=== PATIENT | female | born 1970 | race Two or more races ===

== ENCOUNTER 2025-05-03 12:15 | Day surgery (SDC) | payer MEDICAID, SELFPAY ==
[2025-05-02 14:21] VITALS: BMI 34.0
[2025-05-03] VITALS (13 sets, daily range): BP systolic 120–149; BP diastolic 63–102; PULSE 62–79; RESP 12–16; TEMP 36.5–36.7; O2SAT 94–100; BMI 32.5
[2025-05-03] MEDS: SODIUM CHLORIDE 0.9% 500 ML 500 ML 20 ML IV (14:22)
[2025-05-03] MEDS: fentaNYL CIT INJ 50 mCg/ML AMP 2ML (ASD USE ONLY) IVP (14:26)
[2025-05-03] MEDS: MIDAZOLAM INJ 1 MG/ML VIAL 2 ML (ASD USE ONLY) 2 MG IVP (14:31)
== END 2025-05-03 15:50 | disposition home or self-care (01) ==
PROVIDERS: Referring Provider Surgery; Visit Provider Surgery
PROC: 0DBE8ZX Excision of Large Intestine, Via Natural or Artificial Opening Endoscopic, Diagnostic (ICD-10-PCS; CPT 45380; principal; 2025-05-03 13:00)
DX: K63.5 Polyp of colon (principal); K57.31 Diverticulosis of large intestine without perforation or abscess with bleeding
CPT/HCPCS: 45385; 45380; J1200; J2250; J3010; J7999